=== PATIENT | female | born 1990 | race Hispanic/Latino ===

== ENCOUNTER 2018-04-22 07:59 | Day surgery (SDC) | payer BC ==
[2018-04-21 16:22] VITALS: BMI 46.9
[2018-04-22 08:55] LABS: Hemoglobin 14.1 g/dL (12.0-16.0)
[2018-04-22 09:09] LABS: BHCG - Serum Negative (NEGATIVE); Pregs Control Background? CLEAR/WHITE (CLR/WHITE); Pregs Control Bar Appear? YES (CONTROL BAR)
[2018-04-22] MEDS ORDERED: Midazolam HCl 2 mg/2 ml Vial ONE ×2 (09:15→12:25)
[2018-04-22] MEDS ORDERED: PROPOFOL 200 MG/20 ML VIAL ONE (12:07)
[2018-04-22] MEDS ORDERED: Dexamethasone 20 MG/5 ML VIAL ONE (12:07)
[2018-04-22] MEDS ORDERED: Lidocaine 1% PF 5 ML VIAL ONE (12:07)
[2018-04-22] MEDS ORDERED: Ondansetron PF 4 MG/2 ML Vial ONE (12:07)
[2018-04-22] MEDS ORDERED: Fentanyl 100 MCG/2 ML VIAL ONE (12:25)
[2018-04-22] MEDS ORDERED: Lidocaine 1% w/Epinephrine 1:100K 30 ML VIAL ONE (12:51)
[2018-04-22] MEDS ORDERED: Bacitracin Zinc Ointment 30 gm TUBE ONE (12:51)
--- NOTE | 2018-04-23 13:01 | OP ---
DATE OF PROCEDURE: 04/22/2018 PREOPERATIVE DIAGNOSIS: Left neck mass. POSTOPERATIVE DIAGNOSIS: Left deep neck mass consistent with subplatysmal lipoma. PROCEDURES PERFORMED: Excision of left deep neck mass consistent with subplatysmal lipoma. DESCRIPTION OF PROCEDURE: After consent was obtained, the patient was identified, brought to the operating room, and placed on the operating table in supine position. LMA anesthesia was obtained and the patient was positioned for surgery. The area to be operated on was infiltrated with 1% lidocaine with 1:100,000 epinephrine. A 2 cm incision was made over in the natural skin crease immediately below the mass and we then proceeded with excision and dissection down to the level of the platysma. Subplatysmally, a distinct lipoma was found and surgically removed with care not to injure any of the surrounding neurovascular bundle or carotid sheath. Specimen was sent for permanent histologic evaluation. Wound was closed in layers and the skin was closed with a running subcuticular. Sterile dressing was applied. Job ID: [id number]
--- NOTE | 2018-04-28 05:30 | PQF ---
[facility] POST DISCHARGE CLINICAL DOCUMENTATION IMPROVEMENT CLARIFICATION FORM l Todays Date: 04/27/18 l Patients Name KAIDEN DIANA l l Admit Date 04/22/18 l Disch Date 04/22/18 Dominatrix Name Princess Burt Yohana Email: [email or web address] Cell: [phone] To be completed by Dominatrix: Present Clinical Indicators - Signs / Symptoms Results and Location in Medical Record [ ] Documentation of: [ ] [ ] Documentation of: [ ] [ ] Documentation of: [ ] [ ] Documentation of: [ ] [ ] Risks [ ] [ ] [ ] Treatment [ ] EXCISION OF LEFT DEEP NECK MASS QUERY FOR SIZE OF EXCISED LESION WITH MARGINS [ ] [ ] To be completed by Physician: DR.[email or web address] HI The documentation in this patients record requires clarification to ensure coding compliance and accuracy. Check the appropriate box and include in your discharge summary. [ ] [ ] [ ] [ ] Please check this box if this does not apply to this patient [ ] Unable to determine [ ] Other diagnosis: Review the following information and exercise your independent professional judgment in responding to the clarification. Based upon the clinical findings, risk factors, and treatment, please clarify if you are treating one of the above probable or suspected diagnoses. Physician Signature: Date Time EHSAND
== END 2018-04-22 15:45 | disposition home or self-care (01) ==
LOC: SDC 07:59
PROVIDERS: ATTEND Specialist
PROC: 0KB30ZZ Excision of Left Neck Muscle, Open Approach (ICD-10-PCS; principal; 2018-04-22)
DX: D17.0 Benign lipomatous neoplasm of skin and subcutaneous tissue of head, face and neck (principal); Z79.899 Other long term (current) drug therapy
CPT/HCPCS: 36415; 84703; 85014; 85018; 88304; J1100; J2001; J2250; J2405; J2704; J3010

== ENCOUNTER 2022-11-19 14:42 | Outpatient (CLI) | payer BC | END 2022-11-19 14:43 | disposition home or self-care (01) | LOC: RAD 14:42 | PROVIDERS: ATTEND Family Medicine | DX: M54.50 Low back pain, unspecified (principal); M47.816 Spondylosis without myelopathy or radiculopathy, lumbar region; M46.06 Spinal enthesopathy, lumbar region; M89.38 Hypertrophy of bone, other site | CPT/HCPCS: 72100 ==